=== PATIENT | male | born 1940 | race Caucasian/White ===

== ENCOUNTER → 2016-10-26 | Outpatient (CLI) | payer OTHER | LOC: BMCIMAGING 16:58 | PROVIDERS: ATTEND Nurse Practitioner Adult Health | DX: Z01.818 Encounter for other preprocedural examination (principal); M79.672 Pain in left foot ==

== ENCOUNTER → 2016-11-15 | Outpatient (CLI) | payer OTHER | LOC: FIMAGING 11:38 | PROVIDERS: ATTEND Podiatrist Foot & Ankle Surgery | DX: M79.672 Pain in left foot (principal); M79.671 Pain in right foot ==

== ENCOUNTER → 2017-10-28 | Outpatient (CLI) | payer OTHER | LOC: FIMAGING 18:37 | DX: M48.02 Spinal stenosis, cervical region (principal); M50.321 Other cervical disc degeneration at C4-C5 level; M53.82 Other specified dorsopathies, cervical region ==

== ENCOUNTER 2017-11-11 06:41 | Emergency (ER) | payer OTHER ==
--- NOTE | 2017-11-11 07:30 | EDPHY ---
H & P Stated Complaint: weak conccerned about reaction to allergy drops Time Seen by Provider: 11/11/17 06:48 - Personal History Current Tetanus/Diphtheria Vaccine: Yes Current Tetanus Diphtheria and Acellular Pertussis (TDAP): Yes - Medical/Surgical History Hx Asthma: Yes Hx Chronic Respiratory Disease: No Hx Diabetes: No Hx Cardiac Disease: No Hx Renal Disease: No Hx Cirrhosis: No Hx Alcoholism: No Hx HIV/AIDS: No Hx Splenectomy or Spleen Trauma: No - Social History Smoking Status: Never smoked Constitutional: Initial Vital Signs Temperature (C) 36.4 C 11/11/17 06:44 Heart Rate 69 11/11/17 06:44 Respiratory Rate 18 11/11/17 06:44 Blood Pressure 185/99 H 11/11/17 06:44 O2 Sat (%) 94 11/11/17 06:44 O2 Delivery Mode Room Air Allergies/Adverse Reactions: Penicillins Allergy (Verified 08/29/13 10:36) Home Medications: Medication Instructions Recorded Albuterol 11/11/17 Lisinopril/Hctz 20/12.5MG 1 ea PO DAILY #30 tab 11/11/17 [Zestoretic/Prinzide 20/12.5MG (*)] Medical Decision Making - Diagnostics Imaging Results: Imaging Impressions Brain MRI 11/11/17 09:52 Impression: 1. Moderate periventricular and deep hemispheric white matter change which is nonspecific but can be seen with small vessel ischemic disease. No evidence for acute infarct. 2. Mild generalized cerebral atrophy. 3. Mild sinus-related change. Probable soft tissue polyps in the nasal passageway bilaterally. Results called and discussed with Laurent Amaya MD on 11/11/2017 at 11:06 a.m. Imaging: Discussed imaging studies w/ scallop dredger Radiologist, I viewed and interpreted images myself ED Course/Re-evaluation: CHIEF COMPLAINT: Lightheadedness, near-syncope HISTORY OF PRESENT ILLNESS: The patient is a 77 y/o male with a history of asthma complaining of two episodes of near-syncope early this morning following an allergic reaction yesterday. Earlier this week he transitioned from allergy shots to allergy eye drops. Yesterday he developed hives and mild lip swelling and discontinued the drops. His symptoms resolved before bed. During the night he woke up feeling near-syncopal, walked around his room, then went back to bed. These symptoms recurred a second time and he ultimately decided to come into the ED for evaluation. He describes lightheadedness, feeling like he would faint, a "foggy feeling" around his face, and generalized head pressure. He denies change with position, spinning sensation, chest pain, palpitations, dyspnea, abdominal pain, vision changes, weakness, paresthesias. Symptoms were not associated with fall, trauma, loss of consciousness. He's had no difficulty walking. He notes some decreased oral intake yesterday. He's never experienced these symptoms previously. REVIEW OF SYSTEMS: A 10 point review of systems was performed and is negative with the exception of the elements mentioned in the history of present illness. PHYSICAL EXAM: HR, BP 180/116, O2 Sat, RR. Temp noted General Appearance: Alert, well hydrated, appropriate, and non-toxic appearing. Head: Atraumatic without scalp tenderness or obvious injury Eyes: Pupils equal, round, reactive to light and accommodation, EOMI, no trauma , no injection. Nose: Atraumatic, no rhinorrhea, clear. Throat: There is no erythema or exudates, no lesions, normal tonsils, mucus membranes moist. No angioedema. Neck: Supple, non-tender, no lymphadenopathy. Respiratory: No retractions, no distress, no wheezes, and no accessory muscle use. Lungs are clear to auscultation bilaterally. Cardiovascular: Regular rate and rhythm, no murmurs, rubs, or gallops. Good capillary refill all extremities. Gastrointestinal: Abdomen is soft, non-tender, non-distended, no masses, no rebound, no guarding, no peritoneal signs. Musculoskeletal: Normal active ROM of all extremities, atraumatic. Neurological: Alert, appropriate, and interactive. The patient has non-focal cranial nerves, motor, sensory, and cerebellar exam. Normal upper and lower extremity strength. Normal [id number] bilaterally. Face symmetric. Skin: No rashes, good turgor, no nodules on palpation. PAST MEDICAL HISTORY: Asthma, "prostate issues" SOCIAL HISTORY: Lives in [place]. Retired. PCP: Dr. Schmid. DIAGNOSTICS/PROCEDURES/CRITICAL CARE TIME: The 12 lead EKG was interpreted by myself. Sinus rhythm rate 67, old inferior Q waves. See hard copy and/or "tracemaster" electronic copy for interpretation. Brain MRI: chronic white matter changes, nothing acute. DIFFERENTIAL DIAGNOSIS: The differential diagnosis for the patient's lightheadedness included but was not limited to infection, peripheral and central causes of vertigo, orthostatic causes including dehydration, cardiogenic and neurogenic causes, and blood loss. MEDICAL DECISION MAKING: This is a 77 y/o male with a history of asthma who presents with a few-hour history of near-syncope and lightheadedness. Exam is unremarkable with a nonfocal neuro exam. Plan for IV, labs, EKG. 0724: BP on recheck is 148/105 0840: Reassessed patient. He feels slightly better, but continues to complain of a vague generalized head pressure. Suspect symptoms are related to allergies and/or sinusitis, but hypertension could be playing a role as well. 5mg PO Lopressor ordered. Patient's BP briefly dropped, but is now elevated again around 170/115. He continues to have symptoms. Plan for brain MRI to rule out cerebellar or other abnormality. Labs are unremarkable. No evidence of end-organ damage via laboratory studies. 1045: BP 200/112. 20mg/12.5 PO lisinopril/HCTZ ordered. Outpatient script for this also ordered. Brain MRI is negative for acute findings. Chronic white matter changes and sinus disease noted. No evidence of hypertensive emergency or urgency. Patient will be discharged home on antihypertensives with referral to his PCP for follow up next week. Return precautions discussed. He is comfortable with this plan. - Data Points Laboratory Results: Laboratory Results 11/11/17 07:35 11/11/17 07:35 11/11/17 11/11/17 11/11/17 07:39 07:35 07:35 WBC 5.70 10^3/uL 10^3/uL (3.80-9.50) RBC 5.45 10^6/uL 10^6/uL (4.40-6.38) Hgb 15.7 g/dL g/dL (13.7-17.5) Hct 47.0 % % (40.0-51.0) MCV 86.2 fL fL (81.5-99.8) MCH 28.8 pg pg (27.9-34.1) MCHC 33.4 g/dL g/dL (32.4-36.7) RDW 13.7 % % (11.5-15.2) Plt Count 216 10^3/uL 10^3/uL (150-400) MPV 10.0 fL fL (8.7-11.7) Neut % (Auto) 58.2 % % (39.3-74.2) Lymph % (Auto) 30.9 % % (15.0-45.0) Jackson % (Auto) 6.8 % % (4.5-13.0) Eos % (Auto) 3.2 % % (0.6-7.6) Baso % (Auto) 0.7 % % (0.3-1.7) Nucleat RBC Rel Count 0.0 % % (0.0-0.2) Absolute Neuts (auto) 3.32 10^3/uL 10^3/uL (1.70-6.50) Absolute Lymphs (auto) 1.76 10^3/uL 10^3/uL (1.00-3.00) Absolute Monos (auto) 0.39 10^3/uL 10^3/uL (0.30-0.80) Absolute Eos (auto) 0.18 10^3/uL 10^3/uL (0.03-0.40) Absolute Basos (auto) 0.04 10^3/uL 10^3/uL (0.02-0.10) Absolute Nucleated RBC 0.00 10^3/uL 10^3/uL (0-0.01) Immature Gran % 0.2 % % (0.0-1.1) Immature Gran # 0.01 10^3/uL 10^3/uL (0.00-0.10) Sodium 140 mEq/L mEq/L (135-145) Potassium 4.1 mEq/L mEq/L (3.3-5.0) Chloride 100 mEq/L mEq/L (97-110) Carbon Dioxide 32 mEq/l H mEq/l (22-31) Anion Gap 8 mEq/L mEq/L (8-16) BUN 12 mg/dL mg/dL (7-23) Creatinine 0.7 mg/dL mg/dL (0.7-1.3) Estimated GFR > 60 Glucose 94 mg/dL mg/dL (70-100) Calcium 9.3 mg/dL mg/dL (8.5-10.4) Total Bilirubin 0.6 mg/dL mg/dL (0.1-1.4) Conjugated Bilirubin 0.0 mg/dL mg/dL (0.0-0.5) Unconjugated Bilirubin 0.6 mg/dL mg/dL (0.0-1.1) AST 23 IU/L IU/L (17-59) ALT 39 IU/L IU/L (21-72) Alkaline Phosphatase 74 IU/L IU/L (38-126) POC Troponin I 0.01 ng/mL ng/mL (0.00-0.08) Total Protein 6.6 g/dL g/dL (6.3-8.2) Albumin 4.0 g/dL g/dL (3.5-5.0) Lipase 49 IU/L IU/L (23-300) Medications Given: Discontinued Medications Lisinopril/HCTZ (Zestoretic) 1 ea PO EDNOW ONE Stop: 11/11/17 10:48 Last Admin: 11/11/17 11:25 Dose: 1 ea Metoprolol Tartrate (Lopressor Injection) 5 mg IVP EDNOW ONE Stop: 11/11/17 08:47 Last Admin: 11/11/17 08:53 Dose: 5 mg Point of Care Test Results: Chemistry 11/11/17 07:39 POC Troponin I 0.01 ng/mL ng/mL (0.00-0.08) Departure - Departure Disposition: Home, Routine, Self-Care Clinical Impression: Lightheadedness Hypertension Qualifiers: Hypertension type: unspecified Qualified Code(s): I10 - Essential (primary) hypertension Condition: Good Instructions: Lisinopril/Hydrochlorothiazide (By mouth), Hypertension (ED), Lightheadedness (ED) Additional Instructions: Take lisinopril/HCTZ as prescribed for hypertension. Buy a blood pressure cuff and take two blood pressure readings daily (once in the morning and once in the evening). Bring this chart with you to your next appointment. Please follow up with ENT next week. Return for chest pain, difficulty breathing, or other worsening of condition. Referrals: Ramsey Schmid MD [Primary Care Provider] - As per Instructions Harrison Bryan MD [Medical Doctor] - As per Instructions Prescriptions: Lisinopril/Hctz 20/12.5MG [Zestoretic/Prinzide 20/12.5MG (*)] 1 ea PO DAILY #30 tab Report Scribed for: Laurent Amaya Report Scribed by: Lynn Hernandez Date of Report: 11/11/17 Time of Report: 07:30
[2017-11-11 07:55] LABS: PLATELET COUNT 216 10^3/uL (150-400)
[2017-11-11] MEDS ORDERED: METOPROLOL TARTRATE 5 MG/5 ML INJ IVP ONE (08:46)
[2017-11-11] MEDS ORDERED: LISINOPRIL/HCTZ 20/12.5MG 1 EA TAB PO ONE (10:47)
[2017-11-11 11:51] VITALS: BP 162/98
--- NOTE | 2017-11-11 14:01 | CPEKG ---
Test Reason : OPEN Blood Pressure : / mmHG Vent. Rate : 067 BPM Atrial Rate : 066 BPM P-R Int : 206 ms QRS Dur : 083 ms QT Int : 400 ms P-R-T Axes : -66 -75 035 degrees QTc Int : 423 ms Sinus or ectopic atrial rhythm Inferior infarct, old Confirmed by Laurent Amaya ([id number]) on 11/11/2017 2:01:19 PM Referred By: Confirmed By:Laurent Amaya
== END 2017-11-11 11:59 | disposition home or self-care (01) ==
DX: R42 Dizziness and giddiness (principal); I10 Essential (primary) hypertension; J45.909 Unspecified asthma, uncomplicated
CPT/HCPCS: 84484-PO; 96374